=== PATIENT | female | born 1970 ===

== ENCOUNTER 2024-10-26 09:00 | Day surgery (SDC) | payer OTHER ==
[2024-10-22 10:36] VITALS: BP 160/90
[2024-10-22 10:51] LABS: URINE APPEARANCE Clear; URINE BILIRRUBIN Negative (NEGATIVE); URINE BLOOD Small; URINE COLOR Yellow; URINE GLUCOSE Negative (NEGATIVE); URINE KETONE Trace (NEGATIVE); URINE LEUKOCYTE Trace; URINE NITRATE Negative; URINE PROTEIN Negative (NEGATIVE); URINE UROBILINOGEN 1.0 E.U./dl
[2024-10-22 10:51] LABS: BASO % 0.6 % (0.1-1.2); EOS # 0.05 (0.04-0.54); EOS % 1.5 % (0.7-7.0); LYMPH # 0.65 (1.18-3.74); LYMPH % 19.5 % (19.3-53.1); MEAN PLATELET VOLUME 9.60 fl (9.4-12.4); MONO # 0.31 (0.24-0.82); MONO % 9.3 % (4.7-12.5); NEUT # 2.30 (1.56-6.13); NEUT % 68.8 % (34.0-71.1); RED CELL DISTRIBUTION WIDTH 12.1 % (11.6-14.4)
[2024-10-22 10:56] LABS: URINE BACTERIA 567.5 uL (0.0-1933); URINE EPITHELIAL CELLS 28.9 uL (0.0-38.8); URINE RBC 21.9 uL (0.0-20.8); URINE WBC 22.3 uL (0.0-23.2)
[2024-10-22 11:16] LABS: URINE CAST 0.00 uL (0.0-1.40)
[2024-10-22 11:17] LABS: BUN CREA RATIO 20.0 (7.0-25.0); CREATININE SERUM 0.64 mg/dL (0.55-1.02); GFR 97.07; GLUCOSE FASTING 104.0 mg/dL (65-100); OSMOLALITY SERUM 284.0 MOSM/KG (275-295)
[2024-10-22 11:31] LABS: INR 0.99
[~2024-10-26] VITALS: Ht 172.7 cm; Wt 77.1 kg
[~2024-10-26 09:00] MED LIST: SYNTHROID112 MCG PO
[2024-10-26] MEDS ORDERED: CEFAZOLIN SODIUM 1,000 MG VIAL ONE (09:58)
[2024-10-26] MEDS ORDERED: ENALAPRILAT DIHYDRATE 1.25 MG/ML VIAL IV ONE (11:09)
[2024-10-26] MEDS ORDERED: SUGAMMADEX SODIUM 200 MG/2 ML VIAL IV ONE (12:22)
[2024-10-26] MEDS ORDERED: hydrALAZINE HCL 20 MG VIAL ONE (14:54)
== END 2024-10-26 17:30 | disposition home or self-care (01) ==
LOC: CIR.AMB 09:00
PROVIDERS: ATTEND Otolaryngology Otology & Neurotology
DX: C30.1 Malignant neoplasm of middle ear (principal); H74.8X2 Other specified disorders of left middle ear and mastoid